=== PATIENT | female | born 1965 | race Caucasian/White ===

== ENCOUNTER 2020-01-15 12:19 | Day surgery (SDC) | payer MEDICARE ==
[~2020-01-15] VITALS: Ht 162.6 cm; Wt 106.5 kg
[~2020-01-15 12:19] MED LIST: IBUP800 PO; NATURE THROID PO; OXYC5 PO
--- NOTE | 2020-01-15 12:32 | NUR ---
Ambulatory in Day Surgery History, Chart, Medications and Allergies reviewed before start of procedure. Lungs clear T/O to Auscultation. Patient States Post-Procedure ride home has been arranged.
--- NOTE | 2020-01-15 13:56 | NUR ---
GLASSES PLACED IN PACU AND PHONE PLACED IN PATIENT BELONGINGS BAG
== END 2020-01-15 22:58 | disposition home or self-care (01) ==
LOC: ORSCMMR 12:19 → ORD 13:45 → ORSCMMR 22:58
PROVIDERS: Orthopaedic Surgery
PROC: 0LBJ0ZZ Excision of Right Hip Tendon, Open Approach (ICD-10-PCS; principal; 2020-01-15 13:45)
DX: M70.61 Trochanteric bursitis, right hip (principal); S76.011A Strain of muscle, fascia and tendon of right hip, initial encounter; J45.909 Unspecified asthma, uncomplicated; G47.33 Obstructive sleep apnea (adult) (pediatric); E66.01 Morbid (severe) obesity due to excess calories; Z68.41 Body mass index [BMI] 40.0-44.9, adult; Z79.899 Other long term (current) drug therapy
CPT/HCPCS: A9270; C1713; J0690; J2250; J2704; J3010; J7120

== ENCOUNTER 2020-02-29 10:09 | Day surgery (SDC) | payer MEDICARE, SELFPAY ==
[~2020-02-29] VITALS: Ht 162.6 cm; Wt 108.8 kg
--- NOTE | 2020-02-29 11:45 | NUR ---
02/29/20 1145 LUBA JONES pt TO STEP DOWN VIA BED, SBA TO RECLINER. VSS ON ROOM AIR. IV PATENT. PT DENIES PAIN/NAUSEA AT THIS TIME. TOLERATING PO INTAKE. CAROLINA SYLVESTER ENGAGED IN DC TEACHING AND ALL QUESTIONS ASKED AND ANSWERED. DRESSING C/D/I.
--- NOTE | 2020-02-29 11:52 | NUR ---
02/29/20 1152 Christa Medellin PT. VERBALIZES RIGHT HIP ACHE'S. PT. HAD SURGERY ON IT & IS DOING REHAB.
== END 2020-02-29 12:00 | disposition home or self-care (01) ==
LOC: ORSCSDS 10:09
PROVIDERS: Podiatrist Foot & Ankle Surgery
PROC: 0JBQ0ZZ Excision of Right Foot Subcutaneous Tissue and Fascia, Open Approach (ICD-10-PCS; principal; 2020-02-29 11:15)
DX: M67.471 Ganglion, right ankle and foot (principal); G47.33 Obstructive sleep apnea (adult) (pediatric); E03.9 Hypothyroidism, unspecified; Z87.891 Personal history of nicotine dependence; J45.909 Unspecified asthma, uncomplicated; M79.7 Fibromyalgia; E66.01 Morbid (severe) obesity due to excess calories; Z68.41 Body mass index [BMI] 40.0-44.9, adult; Z79.899 Other long term (current) drug therapy
CPT/HCPCS: J0171; J0690; J1100; J2250; J2405; J2704; J3010; J7120

== ENCOUNTER 2020-05-15 11:32 | Emergency (ER) | payer MEDICARE, SELFPAY ==
[~2020-05-15] VITALS: Ht 162.6 cm; Wt 107.0 kg
[2020-05-15 12:20] LABS: Calcium, Ionized (POC) 1.12 mmol/L (1.10-1.46); Chloride (POC) 106 mmol/L (98-108); Creatinine (POC) 0.8 mg/dL (0.6-1.0); Glucose (ISTAT POC) 128 mg/dL (70-99); Hemoglobin (POC) 12.6 g/dL (12.0-16.0); Potassium (POC) 3.1 mmol/L (3.5-5.5); Sodium (POC) 141 mmol/L (135-148); Total CO2 (POC) 24 mmol/L (21-32)
[2020-05-15] MEDS ORDERED: Norco 5-325 Ta1 EACH PO (14:13)
== END 2020-05-15 14:53 | disposition home or self-care (01) ==
LOC: ER 11:32
PROVIDERS: Physician Assistant
DX: M25.552 Pain in left hip (principal); M54.2 Cervicalgia; Z88.5 Allergy status to narcotic agent; Z88.8 Allergy status to other drugs, medicaments and biological substances; Z88.1 Allergy status to other antibiotic agents; Z79.899 Other long term (current) drug therapy; Z88.2 Allergy status to sulfonamides; V49.40XA Driver injured in collision with unspecified motor vehicles in traffic accident, initial encounter
CPT/HCPCS: 70450; 71260; 72125; 74177; 80047; 85014; 99284-25; A9270; Q9967

== ENCOUNTER 2020-05-21 17:24 | Inpatient (IN) | payer MEDICARE, OTHER ==
[~2020-05-21] VITALS: Ht 162.6 cm; Wt 110.7 kg
[~2020-05-21 17:24] MED LIST changes: +Norco 5-325 Ta1 EACH PO
[2020-05-21 18:06] LABS: Source, Urine Clean Catch
[2020-05-21 18:22] LABS: BASOPHILS ABSOLUTE AUTO 0.03 K/mm3 (0.00-0.23); BASOPHILS PERCENT AUTO 0 % (0-2); EOSINOPHILS ABSOLUTE AUTO 0.32 K/mm3 (0.00-0.68); EOSINOPHILS PERCENT AUTO 4 % (0-6); Hematocrit 36.4 % (33.0-51.0); Hemoglobin 11.8 g/dL (11.5-16.0); IMMATURE GRAN ABSOLUTE AUTO 0.03 K/mm3 (0.00-0.10); IMMATURE GRAN PERCENT AUTO 0 % (0-1); LYMPHOCYTES ABSOLUTE AUTO 2.48 K/mm3 (0.84-5.20); LYMPHOCYTES PERCENT AUTO 29 % (21-46); MONOCYTES ABSOLUTE AUTO 0.63 K/mm3 (0.16-1.47); MONOCYTES PERCENT AUTO 7 % (4-13); Mean Corpuscular HGB 27.4 pg (26.0-34.0); Mean Corpuscular HGB Conc 32.4 g/dL (31.5-36.5); Mean Corpuscular Volume 85 fL (80-100); Mean Platelet Volume 10.2 fL (9.1-12.4); NEUTROPHILS ABSOLUTE AUTO 5.12 K/mm3 (1.96-9.15); NEUTROPHILS PERCENT AUTO 60 % (41-73); Platelet Count 330 K/mm3 (150-400); RDW Coefficient Variation 14.1 % (11.7-14.2); RDW Standard Deviation 43.6 fL (35.1-46.3); Red Blood Cell Count 4.31 M/mm3 (3.80-5.20); White Blood Cell Count 8.61 K/mm3 (4.00-11.30)
[2020-05-21 18:30] LABS: Bilirubin, Urine Neg (Neg); Blood, Urine Neg (Neg); Glucose Qualitative, Urine Neg (Neg); Ketones, Urine Neg (Neg); Leukocyte Esterase, Urine Neg (Neg); Nitrite, Urine Neg (Neg); Protein, Urine Neg (Neg); Urobilinogen, Urine 1+ (Normal); pH, Urine 6.5 (5.0-8.0)
[2020-05-21 18:31] LABS: Color, Urine Yellow (P-Yellow)
[2020-05-21 18:32] LABS: Appearance, Urine Clear (Clear)
[2020-05-21 18:41] LABS: Alanine Aminotransfer (ALT/SGP 40 U/L (12-78); Albumin, Blood 3.5 g/dL (3.4-5.0); Albumin/Globulin Ratio 0.9 (0.8-1.8); Alk Phos 102 U/L (50-136); Anion Gap 5 mmol/L (6-16); Aspartate Aminotrans (AST/SGOT 29 U/L (12-37); Bilirubin, Total 0.4 mg/dL (0.1-1.0); Blood Urea Nitrogen 13 mg/dL (8-24); Bun/Creatinine Ratio 17.9 (12.0-20.0); CO2, Blood 27 mmol/L (21-32); Calcium, Blood 9.3 mg/dL (8.5-10.1); Chloride, Blood 106 mmol/L (98-108); Creatinine, Blood 0.73 mg/dL (0.40-1.00); Glomerular Filtration Rate >60 (60-); Glucose, Blood 109 mg/dL (70-99); Potassium, Blood 3.5 mmol/L (3.5-5.5); Sodium, Blood 138 mmol/L (136-145); Total Protein, Blood 7.5 g/dL (6.4-8.2)
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
--- NOTE | 2020-05-22 19:16 | NUR ---
SUMMARY PT REPORTS IMPROVED PAIN CONTROL THIS EVENING. EMOTIONAL AND TEARFUL AT TIMES. SPOKE TO LINEMAN A CLASS AND STATED IT HELPED. PT TOLERATING REGULAR DIET.
--- NOTE | 2020-05-23 06:45 | NUR ---
PT VSS T/O NIGHT. PT REP PAIN BETTER CONTROLLED, MED W/TORADOL AND PO DILAUDID W/REP RELIEF. PT ABLE TO AMB INDEP IN ROOM AND REPOSITION SELF IN BED. PT QUINN REG PO, NO N/V, BOWEL CARE STARTED PER ORDERS.
--- NOTE | 2020-05-23 07:35 | NUR ---
dr brambila by to see pt discussed pt l foot pain and small bm this am
--- NOTE | 2020-05-23 08:15 | NUR ---
meds given with breakfast dr rush by to see pt will trial a 5 mg po flexaril if pt thuy well may go home after lunch
[2020-05-23] MEDS ORDERED: DOCU100 PO (10:42)
[2020-05-23] MEDS ORDERED: HYDMOR2 PO (10:43)
[2020-05-23] MEDS ORDERED: POLYETHYLENE G500 G1 PO (10:44)
[2020-05-23] MEDS ORDERED: SENN187 PO (10:46)
[2020-05-23] MEDS ORDERED: CYCLOBENZAPRINE5 MG PO (10:47)
[2020-05-23] MEDS ORDERED: IBUP800 PO (10:48)
--- NOTE | 2020-05-23 11:14 | NUR ---
pt resting earlier pt reported having 2 more bm larger in size less cramping noted
--- NOTE | 2020-05-23 11:55 | NUR ---
rx called to [facility]
--- NOTE | 2020-05-23 14:15 | NUR ---
DISCHARGE INSTRUCTIONS REVIEWED WITH PT VERBALIZED RX GIVEN NO ACUTE CHANGES PT GOING TO GET DRESSED PT STATED SHE WILL CALL THE [facility] FOR A RIDE
== END 2020-05-23 15:40 | disposition home or self-care (01) | DRG 964 ==
LOC: ER 17:24 → SURS 17:25
PROVIDERS: Physician Assistant; ADMIT Surgery
DX: S27.321A Contusion of lung, unilateral, initial encounter (principal); S22.42XA Multiple fractures of ribs, left side, initial encounter for closed fracture; S36.030A Superficial (capsular) laceration of spleen, initial encounter; Q79.60 Ehlers-Danlos syndrome, unspecified; S30.1XXA Contusion of abdominal wall, initial encounter; M54.5 Low back pain; G89.29 Other chronic pain; M79.7 Fibromyalgia; E06.3 Autoimmune thyroiditis; M25.462 Effusion, left knee; R09.02 Hypoxemia; M19.072 Primary osteoarthritis, left ankle and foot; M17.12 Unilateral primary osteoarthritis, left knee; Z98.891 History of uterine scar from previous surgery; Z90.710 Acquired absence of both cervix and uterus; Z98.890 Other specified postprocedural states; Z98.1 Arthrodesis status; Z79.899 Other long term (current) drug therapy; V89.2XXA Person injured in unspecified motor-vehicle accident, traffic, initial encounter; Y92.410 Unspecified street and highway as the place of occurrence of the external cause
CPT/HCPCS: 36415; 71260; 73562-LT; 73630; 74177; 80053; 81003; 83690; 85025; 87086; 96374-59; 96375; 96375-59; 96376; 99285-25; A9270; G0378; J1170; J1885; J2270; J2405; J3010; J7030; J7120; Q9967